=== PATIENT | male | born 1965 | race Caucasian/White ===

== ENCOUNTER → 2018-09-30 | Outpatient (CLI) | payer OTHER ==
[~2018-09-30] MED LIST: FLEXERIL PO; NAPROSYN500 MG PO; ULTRAM 50MG TAB50 MG PO
== END ==
LOC: M.CT 08:53
DX: K50.90 Crohn's disease, unspecified, without complications (principal); K80.20 Calculus of gallbladder without cholecystitis without obstruction; K76.0 Fatty (change of) liver, not elsewhere classified; N28.1 Cyst of kidney, acquired; K63.89 Other specified diseases of intestine; R59.0 Localized enlarged lymph nodes

== ENCOUNTER → 2018-10-30 | Outpatient (CLI) | payer OTHER ==
[2018-10-30 15:43] LABS: HEMATOCRIT 38.7 % (42.0-52.0); HEMOGLOBIN 12.6 gm/dL (14.0-18.0); MCH 30.2 pg (26.0-34.0); MCHC 32.5 g/dL (28.0-37.0); MPV 8.9 fl. (7.2-11.1); NUCLEATED RBCS 0 /100WBC; PLATELET COUNT* 403 thou/uL (150-400); RBC 4.16 mil/uL (4.50-6.00); RDW-CV 13.4 % (10.5-14.5); WBC 13.7 thou/uL (4.0-11.0)
[2018-10-30 15:52] LABS: ALBUMIN 3.6 g/dL (3.4-5.0); CALCIUM 8.5 mg/dL (8.5-10.1); CREATININE 1.6 mg/dL (0.6-1.3); POTASSIUM 4.1 mmol/L (3.5-5.1); TOTAL BILIRUBIN 0.4 mg/dL (<0.1-1.0); TOTAL PROTEIN 7.2 g/dL (6.4-8.2)
[2018-10-30 16:31] LABS: ABSOLUTE NEUTROPHILS 11.8 thou/uL (1.6-8.1); PLATELET ESTIMATE ADEQUATE
[2018-10-30 16:32] LABS: CLUMPED PLTS RARE; LARGE PLATELETS OCCASIONAL
[2018-10-30 16:53] LABS: ESR (SEDRATE) 10 mm/hr (0-20)
[2018-10-31 06:08] LABS: HEPATITIS B SURFACE AG Negative (Negative)
== END ==
LOC: M.LAB 15:07
PROVIDERS: Internal Medicine Gastroenterology
DX: K50.90 Crohn's disease, unspecified, without complications (principal)